=== PATIENT | female | born 2000 | race Caucasian/White ===

== ENCOUNTER 2020-12-05 02:15 | Emergency (ER) | payer MEDICAID ==
[~2020-12-05] VITALS: Ht 157.5 cm; Wt 58.1 kg
[2020-12-05 02:53] VITALS: BP_SYST 108
[2020-12-05] MEDS ORDERED: LIDOCAINE/EPI 1% 1:100000 20 ML VIAL INJ ONE ×2 (03:59→04:00)
[2020-12-05 04:00] VITALS: BP_SYST 108
== END 2020-12-05 04:00 | disposition home or self-care (01) ==
LOC: SED 02:15
DX: S21.141A Puncture wound with foreign body of right front wall of thorax without penetration into thoracic cavity, initial encounter (principal); X58.XXXA Exposure to other specified factors, initial encounter; Y93.9 Activity, unspecified; Y92.89 Other specified places as the place of occurrence of the external cause; Y99.8 Other external cause status
CPT/HCPCS: 99284